=== PATIENT | female | born 1955 | race Caucasian/White ===

== ENCOUNTER 2016-10-16 06:46 | Day surgery (SDC) | payer OTHER ==
[2016-10-13 11:46] LABS: HEMOGLOBIN 14.9 g/dL (12.0-16.0)
[2016-10-13 11:49] LABS: HEMATOCRIT 45.4 % (36.0-48.0)
[2016-10-13 12:35] LABS: ASCORBIC ACID (UR NOT ORDER) NEG (NEG); BILIRUBIN, URINE NEGATIVE (NEG); KETONE, URINE NEGATIVE (NEG); LEUKOCYTE ESTERASE(NOT OR LARGE (NEG); WBC (NOT ORDERED) (RFLEX) 2 (0-5)
--- NOTE | ~2016-10-16 | OP ---
Record Of Operation [facility] [address] [place]. [address] NAME: AGNES DEMARCO : 55 STATUS : [facility]#: [id number] AGE: 61 ADM/REG DATE : 10/16/16 MR#: [id number] REPORT SERV DATE: 10/17/16 DICTATED BY: SHIN HOLMAN DATE: 10/17/16 REPORT STATUS : Draft TRANSCRIBED BY: MODL DATE: 10/17/16 DATE OF PROCEDURE: 10/16/2016 TITLE OF OPERATION: Right ureteral shockwave lithotripsy. PREOPERATIVE DIAGNOSIS: Right ureteral stone. POSTOPERATIVE DIAGNOSIS: Right ureteral stone. INDICATIONS: Mrs. Demarco is a 61-year-old female with a 5 mm right proximal ureteral stone. She has failed conservative management. She has elected to have shockwave lithotripsy. ANESTHESIA: Sedation. COMPLICATIONS: None. IMPLANTS: None. SPECIMENS: None. NARRATIVE: The patient was brought to the operating room, identified by wristband. Sedation was induced. The stone was localized with fluoroscopy using the AP and lateral films. Looking ahead, the Lithotripter was placed into position. The stone was shocked a total of 2500 times. There was excellent stone response and actual disappearance of the stone at 1500 shocks. A second 3 mm stone was encountered in the kidney and the remaining shocks were given to this stone. The stone has complete response on x-ray. The rate was 90 in the power level 5. These were both increased as the number of shocks increased to minimize complications. The patient tolerated the procedure well. There were no major complications. I will see her back in two weeks with a KUB. KAEL/DOMINGA Shin Holman MD / [id number] CC: MD Mayank Anne M.D.
[~2016-10-16 06:46] MED LIST: ACET500CAP PO; ADVIL PO; ARTHRITIS PILL PO; ENDOCET1 TA3 PO; KLONO5 PO; LEVAQUIN750 MG PO; LIPITOR10 PO; NABUMETONE750 MG PO; PAXIL PO; PAXIL40 MG PO; PRILOSEC40 MG PO; PROAIR HFA INH; STOMACH PILL PO; SYN1 PO; ZOFRAN8 PO
== END 2016-10-16 12:06 | disposition home or self-care (01) ==
LOC: SDC 06:46
PROVIDERS: Urology
PROC: 0TC67ZZ Extirpation of Matter from Right Ureter, Via Natural or Artificial Opening (ICD-10-PCS; principal; 2016-10-16 09:00)
DX: N20.1 Calculus of ureter (principal); J44.9 Chronic obstructive pulmonary disease, unspecified; E78.5 Hyperlipidemia, unspecified; E03.9 Hypothyroidism, unspecified; F17.210 Nicotine dependence, cigarettes, uncomplicated; F41.9 Anxiety disorder, unspecified; F32.9 Major depressive disorder, single episode, unspecified; Z90.49 Acquired absence of other specified parts of digestive tract
CPT/HCPCS: 50590; 74000; 81001; 85014; 85018; 87086; 93005; 94640; J2250; J2405; J3010